=== PATIENT | female | born 1965 | race Two or more races ===

== ENCOUNTER → 2017-07-01 | Day surgery (SDC) | payer OTHER | END | disposition home or self-care (01) | LOC: AMB-ENDOS 06:00 | DX: K57.30 Diverticulosis of large intestine without perforation or abscess without bleeding (principal); K64.1 Second degree hemorrhoids; Z12.11 Encounter for screening for malignant neoplasm of colon ==

== ENCOUNTER 2017-07-28 10:15 | Inpatient (IN) | payer OTHER ==
[~2017-07-28] VITALS: Ht 157.5 cm; Wt 70.3 kg
[2017-07-28] MEDS ORDERED: VASOTEC20 M1 (12:15)
[2017-07-28] MEDS ORDERED: PRILOSEC OTC20 MG PO (12:16)
[2017-07-28] MEDS ORDERED: [UNRECOGNIZED DRUG - OTHER] PO (12:16)
[2017-07-28] MEDS ORDERED: AMBIEN10 MG PO (12:17)
[2017-07-28] MEDS ORDERED: CLONAZEPAM1 MG PO (12:17)
[2017-07-28] MEDS ORDERED: CATAFLAN PO (12:17)
[2017-07-28] MEDS ORDERED: CARAFATE1 GM PO (12:18)
== END 2017-08-06 19:21 | disposition home or self-care (01) | DRG 331 ==
LOC: SURH 08-02 10:00 → O/R 08-02 10:55 → SURG 08-02 10:55 → O/R 08-02 13:53 → SURG 08-02 17:48
PROVIDERS: Colon & Rectal Surgery
PROC: 0DJD8ZZ Inspection of Lower Intestinal Tract, Via Natural or Artificial Opening Endoscopic (ICD-10-PCS; 2017-08-02)
PROC: 4A033R1 Measurement of Arterial Saturation, Peripheral, Percutaneous Approach (ICD-10-PCS; 2017-08-02)
PROC: 4A12X4Z Monitoring of Cardiac Electrical Activity, External Approach (ICD-10-PCS; 2017-08-02)
PROC: 3E0F7GC Introduction of Other Therapeutic Substance into Respiratory Tract, Via Natural or Artificial Opening (ICD-10-PCS; 2017-08-02)
PROC: 0DTN4ZZ Resection of Sigmoid Colon, Percutaneous Endoscopic Approach (ICD-10-PCS; principal; 2017-08-02 10:00)
DX: K57.32 Diverticulitis of large intestine without perforation or abscess without bleeding (principal); E78.00 Pure hypercholesterolemia, unspecified; G47.33 Obstructive sleep apnea (adult) (pediatric); E11.9 Type 2 diabetes mellitus without complications; J45.20 Mild intermittent asthma, uncomplicated

== ENCOUNTER 2017-10-04 19:36 | Emergency (ER) | payer OTHER ==
[~2017-10-04] VITALS: Ht 157.5 cm; Wt 65.8 kg
[~2017-10-04 19:36] MED LIST: AMBIEN10 MG PO; CARAFATE1 GM PO; CATAFLAN PO; CLONAZEPAM1 MG PO; PRILOSEC OTC20 MG PO; VASOTEC20 M1; [UNRECOGNIZED DRUG - OTHER] PO
[2017-10-04] MEDS ORDERED: NEURONTIN300 MG (19:58)
[2017-10-04] MEDS ORDERED: ZANTAC 7575 MG (19:59)
== END 2017-10-05 01:04 | disposition home or self-care (01) ==
LOC: ER 19:36
DX: K57.90 Diverticulosis of intestine, part unspecified, without perforation or abscess without bleeding (principal); R14.0 Abdominal distension (gaseous)